=== PATIENT | female | born 1955 | race Caucasian/White ===

== ENCOUNTER 2022-12-15 10:29 | Emergency (ER) | payer MEDICARE, SELFPAY ==
[2022-12-15 10:30] VITALS: BP 118/71; PULSE 86; RESP 18; TEMP 37.4; O2SAT 97; BMI 51.6
--- NOTE | 2022-12-15 10:45 | ED.VIS.FALL ---
HPI HPI - Fall History of Present Illness Chief Complaint: Fall Informant: patient Occured/Mechanism Occurred: Today Mechanism/Context: Yes same level fall and Yes trip Pain/Injury Pain Location: face and lower extremity (Bilateral knees) Quality of Pain: Aching Worsened by: Palpation, movement Relieved by: Nothing Associated Symptoms Associated Symptoms: Negative for Parasthesias, Weakness, Loss of function, Inability to ambulate or Loss of consciousness Narrative Narrative: Patient presents after a fall that occurred today. Patient tripped on a rug and fell forward. Patient landed on her knees and hit her face on the ground. Patient denies any loss of consciousness. Patient describes her pain as aching. Patient states her pain is worse with any palpation of the nose or knees. Patient states nothing seems to help with her pain. Patient denies any nausea or vomiting. Patient denies any paresthesias or weakness. Patient denies any other injuries. Patient is on Eliquis. Tetanus Immunization: <5 years PFSH [facility] Medical History (Updated 12/15/22 @ 11:[address] Augie Kamara DO) Afib HTN (hypertension) Hypothyroid Allergy/AdvReac Type Severity Reaction Status Date / Time acetaminophen [From Vicodin] Allergy Nausea Verified 12/15/22 10:34 hydrocodone [From Vicodin] Allergy Nausea Verified 12/15/22 10:34 milnacipran [From Savella] AdvReac Nausea Verified 12/15/22 10:34 Surgical History (Updated 12/15/22 @ 10:[address] Augie Kamara DO) History of total bilateral knee replacement (TKR) Social History Smoking Status: Former smoker ROS ROS ED Constitutional Constitutional ED: Denies chills or fever(s) Eyes Eyes: Denies blurry vision or change in vision ENT ENT ED: Denies rhinorrhea or sore throat Cardiovascular Cardiovascular: Denies chest pain or palpitations Respiratory/Chest Respiratory/Chest: Denies cough or dyspnea Gastrointestinal Gastrointestinal: Denies nausea or vomiting Genitourinary Genitourinary ED: Denies dysuria or hematuria Musculoskeletal Musculoskeletal: Denies back pain or neck pain Integumentary Denies abscess or rash Neurologic Neurologic: Reports headache(s); Denies weakness Allergic/Immunologic Allergic/Immunologic ED: Denies mouth swelling or urticaria EXAM Physical Exam Const Vital Signs: 12/15/22 10:30 12/15/22 10:35 Temperature 99.4 F H Temperature Source Temporal Pulse Rate 86 Respiratory Rate 18 Respiratory Effort Normal Non-Labored Blood Pressure 118/71 Blood Pressure Mean 86 Pulse Ox 97 Oxygen Delivery Method Room Air Positive well nourished, well developed and obese General Appearance ED: well developed and NAD Nutritional Appearance: obese HEENT Reports normocephalic HEENT Narrative: There is tenderness over the bridge of the nose. There is no edema or ecchymosis. There is no bony crepitance or step-off. There is no septal deviation or septal hematoma noted. There is no epistaxis noted. Eyes PERRL and EOMs intact bilaterally Eyes Narrative: Funduscopic exam was benign. Anterior chamber is clear. There is no hyphema noted. Neck full ROM and supple Chest Wall inspection of chest normal and palpation of chest normal Resp normal respiratory effort and clear to auscultation bilaterally Cardio regular rate and regular rhythm GI non-tender and non-distended Palpation: soft Extremity Extremity Narrative: There is tenderness to palpation of the anterior aspects of the knees bilaterally. There is no bony crepitance or step-off. There is mild ecchymosis. Range of motion was limited in all motions of the knee secondary to pain. Strength is 5/5 bilaterally in the lower extremities. There are no sensory deficits noted. Neuro oriented x3, CN's II-XII intact bilaterally, moves all extremities, no focal motor deficits and no sensory deficits noted Flora Coma Scale: document GCS findings Spontaneous Obeys Commands Oriented 15 Sensorium / Orientation: alert Motor Exam: strength 5/5 throughout Psych mental status grossly normal MDM MDM MDM Narrative Medical decision making narrative: Differential diagnosis includes intracranial bleeding, patella fracture, periprosthetic fracture, closed head injury, and soft tissue contusion. CT scan of the brain will be obtained to assess for intracranial bleeding. X-rays of the bilateral knees will be obtained to assess for fracture. Radiography Diagnostic Testing: Clinical Impression(s) from Imaging Studies Brain CT 12/15/22 10:54 IMPRESSION: No acute intracranial process identified. Mild chronic involutional and white matter changes. Electronically Signed: Yesy Gomez MD at 11:45 EDT , Knee X-Ray 12/15/22 11:00 IMPRESSION: Right knee arthroplasty without acute fracture or dislocation identified. Electronically Signed: Yesy Gomez MD at 11:14 EDT , Knee X-Ray 12/15/22 11:00 IMPRESSION: Left knee arthroplasty without acute fracture or dislocation identified. Electronically Signed: Yesy Gomez MD at 11:15 EDT , Wrist X-Ray 12/15/22 12:10 IMPRESSION: No acute fracture or dislocation identified in the right wrist. Electronically Signed: Yesy Gomez MD at 12:42 EDT , X-rays of the left knee were obtained. There are 4 views. On my independent interpretation, there is no acute fracture. There is no dislocation. There is no soft tissue swelling. Radiologist also interpreted the x-rays and agrees. X-rays of the right knee were obtained. There are 4 views. On my independent interpretation, there is no acute fracture. There is no dislocation. There is no soft tissue swelling. Radiologist also interpreted the x-rays and agrees. CT scan of the brain was obtained. There is no acute intracranial abnormality. This was interpreted by the radiologist and was also independently reviewed by myself. Due to the patient's complaint of pain in her right wrist, x-rays of the right wrist were obtained. There are 3 views. On my independent interpretation, there is no acute fracture or dislocation. There is no soft tissue swelling. There are mild degenerative changes. Radiologist also interpreted the x-rays and agrees. Treatment and Re-Evaluation Narrative: Patient declined analgesics. Patient did not even want any Tylenol for pain. On reevaluation, patient noted some pain in her right wrist. X-rays of the right wrist were obtained and were negative. Patient was advised of her findings. Patient was instructed use ice to the areas. Patient was instructed to take Tylenol as needed for pain. Patient was instructed to follow-up with her primary care physician in 5 to 7 days. Patient understood and was agreeable with the plan. All questions were answered. Discharge Plan Triage Chief Complaint: Fall ED Provider: Augie Kamara Dx/Rx/DC Orders Clinical Impression: Contusion of face, Fall, Contusion of left knee, Contusion of right knee Instructions: ED Contusion, Lower Extremity, ED Facial Contusion Primary Care Provider: Charlotte David,Out of Referrals: Charlotte David,Out of [Primary Care Provider] - 5-7 Days Disposition Disposition: Home, Self Care
--- NOTE | 2022-12-15 10:54 | CT_ITS ---
HISTORY: Injury/Pain. TECHNIQUE: Multiple axial images were obtained of the head without intravenous contrast. A radiation dose optimization technique was used for this scan. 288 images. COMPARISON: None. FINDINGS: BRAIN PARENCHYMA: Multiple foci and zones of low attenuation in the bilateral cerebral white matter compatible with chronic small vessel ischemic gliosis. No acute intra-axial hemorrhage identified. CSF SPACES: Generalized volume loss. No midline shift or other significant mass effect. No acute extra-axial hemorrhage seen. OTHER: Intact calvarium. No significant air fluid levels in the paranasal sinuses or mastoid air cells. Unremarkable orbits. CT/Brain/Head without Contrast IMPRESSION: No acute intracranial process identified. Mild chronic involutional and white matter changes. Electronically Signed: Yesy Gomez MD at 11:45 EDT ,
--- NOTE | 2022-12-15 11:00 | RAD_ITS ---
HISTORY INJURY/PAIN. TECHNIQUE: XR Knee Complete 4 Views or More. COMPARISON: None. FINDINGS: BONES : No acute fracture identified. No abnormal periprosthetic lucency seen. JOINTS: Left knee in place without dislocation. Blank SOFT TISSUES: Mild anterior soft tissue swelling. RAD/Knee 4 or More Views IMPRESSION: Left knee arthroplasty without acute fracture or dislocation identified. Electronically Signed: Yesy Gomez MD at 11:15 EDT ,
--- NOTE | 2022-12-15 11:00 | RAD_ITS ---
HISTORY Injury/Pain. TECHNIQUE: XR Knee Complete 4 Views or More. COMPARISON: None. FINDINGS: BONES : No acute fracture identified. No abnormal periprosthetic lucency seen. Small ossification at the medial femoral condyle, likely old ligamentous injury JOINTS: Right knee in place without dislocation. SOFT TISSUES: Mild anterior soft tissue swelling. RAD/Knee 4 or More Views IMPRESSION: Right knee arthroplasty without acute fracture or dislocation identified. Electronically Signed: Yesy Gomez MD at 11:14 EDT ,
--- NOTE | 2022-12-15 12:10 | RAD_ITS ---
HISTORY: Injury/Pain. TECHNIQUE: XR Wrist Min 3 Views. COMPARISON: None. FINDINGS: BONES : No acute fracture identified. Mineralization unremarkable. JOINTS: No dislocation. Joint spaces maintained. RAD/Wrist min 3 Views IMPRESSION: No acute fracture or dislocation identified in the right wrist. Electronically Signed: Yesy Gomez MD at 12:42 EDT ,
[2022-12-15 13:03] VITALS: BP 110/82; PULSE 81; RESP 18; O2SAT 98
== END 2022-12-15 13:03 | disposition home or self-care (01) ==
PROVIDERS: Emergency Provider Emergency Medicine; Visit Provider Emergency Medicine
DX: S00.83XA Contusion of other part of head, initial encounter (principal); S80.02XA Contusion of left knee, initial encounter; S80.01XA Contusion of right knee, initial encounter; E66.9 Obesity, unspecified; Z87.891 Personal history of nicotine dependence; W18.30XA Fall on same level, unspecified, initial encounter
CPT/HCPCS: 70450; 73110; 73564; 99284